=== PATIENT | male | born 1995 | race Caucasian/White ===

== ENCOUNTER 2022-02-12 01:45 | Emergency (ER) | payer OTHER ==
[~2022-02-12] VITALS: Ht 170.2 cm; Wt 61.2 kg
[2022-02-12 01:45] VITALS: BP 123/71
--- NOTE | 2022-02-12 01:45 | NUR ---
PT BIB [facility], PREBOOK. TAKEN TO CHAIR D
--- NOTE | 2022-02-12 01:55 | NUR ---
SEEN AD EXAMINED BY ERMAlma
[2022-02-12 02:03] VITALS: BP 123/71
--- NOTE | 2022-02-12 02:03 | NUR ---
PATIENT BIB [facility] [facility]. PATIENT EXAMINED BY DR. DEVINE PATIENT MEDICALLY CLEARED AND RELEASED IN CUSTODY IN STABLE CONDITION. ORIGINAL PRE-BOOK FORM GIVEN TO OFFICER NABOR [id number].
== END 2022-02-12 02:03 ==
LOC: MED 01:45
DX: F10.129 Alcohol abuse with intoxication, unspecified (principal); Z02.89 Encounter for other administrative examinations; V89.2XXA Person injured in unspecified motor-vehicle accident, traffic, initial encounter; Y93.89 Activity, other specified; Y92.89 Other specified places as the place of occurrence of the external cause; Y99.8 Other external cause status
CPT/HCPCS: 99283